=== PATIENT | female | born 1935 | race Caucasian/White ===

== ENCOUNTER → 2016-10-02 | Outpatient (CLI) | payer MEDICARE, BC ==
[~2016-10-02] MED LIST: CALCIUM + D 6001 TA1 PO; CALCIUM 600 +1 EAC3 PO; FOSAMAX PLUS D1 TA1 PO; FOSAMAX PO; LISINOPRIL PO; LISINOPRIL-HCTZ1 T14 PO; POSTURE600 MG PO; VITAMIN D 4001 UDTAB PO; ZOCOR PO; [UNRECOGNIZED DRUG - OTHER]
--- NOTE | ~2016-10-02 | MY27 ---
[facility] A Service of [facility] RADIOLOGY TEXT RESULTS PATIENT: BABAK ROWELL LOCATION: [facility] : 33 UNIT #: [id number] AGE: [address]: Wilmer Heranndez MD SEX: F ORDER DR: [id number] [facility] [address] [place], [place] [address] [id number] O MR#: [id number] Acc #: [id number] NAME: BABAK ROWELL : 1935 SEX: F STUDY DATE/TIME: 10/02/2016 11:40 UNIT: [facility] ROOM: STUDY DESCRIPTION: MY AGAPITO SCREEN W/ CAD UNI LT Attending Physician: Wilmer Hernandez M.D. Referring Physician: Wilmer Hernandez M.D. Ordering Physician: Wilmer Hernandez M.D. Primary Care Physician: Wilmer Hernandez M.D. MEDICAL IMAGING REPORT This report is preliminary unless electronic signature is present EXAM Unilateral left digital screening mammogram 10/02/2016. [facility] HISTORY 81-year-old woman strong family history , daughter and sister. Right mastectomy 2006. Annual screen. COMPARISON: Mammograms date to 02/24/2006 with most recent 09/28/2015 FINDINGS Digital imaging of the left breast was completed utilizing screening protocol. Review includes FDA-approved CAD device. Breast parenchyma is heterogeneous with subareolar duct ectasia again noted. Small oval nodule with coarse calcification is stable upper deep central location. There are other small nodules upper central location. These have benign characteristics. I see no interval occurring mass or interval occurring microcalcifications and no suspicious architectural deformity. IMPRESSION Stable benign unilateral left mammogram. Status post right mastectomy. Annual screening recommended. Patients over the age of 40 are entered into a reminder system with target due date for the next mammogram. A result letter will also be sent to the patient. BIRADS: 2 - benign findings Dictated by... Aung Lux M.D. THIS IS AN ELECTRONICALLY VERIFIED REPORT [facility] A Service of [facility] RADIOLOGY TEXT RESULTS PATIENT: BABAK ROWELL LOCATION: [facility] : 33 UNIT #: [id number] AGE: [address]: Wilmer Hernandez MD SEX: F ORDER DR: Aung Lux M.D. at 10/02/2016 3:25 PM ADRWIN/saul TD: 10/02/2016 13:55 JOB #: [id number] MEDICAL IMAGING REPORT Page 1 of 1 COPY
== END | disposition home or self-care (01) ==
LOC: CWCC 11:15
DX: Z12.31 Encounter for screening mammogram for malignant neoplasm of breast (principal); Z90.11 Acquired absence of right breast and nipple; Z80.3 Family history of malignant neoplasm of breast
CPT/HCPCS: G0202